=== PATIENT | male | born 1965 | race Caucasian/White ===

== ENCOUNTER 2016-11-23 04:30 | Inpatient (IN) ==
--- OUTSIDE RECORDS SUMMARY | 2016-11-23 04:45 | External Medical Summary | Referral Summary ---
:1965 Author Organization [facility] [place], [facility] Address [address] [place] [address] [place] [id number] Care Team Providers Name Role Phone No PCP, States Primary Care Physician Encounter [facility] [id number] Date(s): 03/30/16 - 03/30/16 [facility] [place], [address] [place] [phone] [phone] Discharge Diagnosis: Lumbar strain Discharge Disposition: 01-Home or Self Care Attending Physician: Kwabena Martin PA-C Admitting Physician: Kwabena Martin PA-C Vital Signs Most recent to oldest [Reference Range]: 1 Temperature Tympanic [36.6-38.1 degC] 36.7 degC (03/30/16 6:13 PM) Peripheral Pulse Rate [60-100 bpm] 77 bpm (03/30/16 6:13 PM) Blood Pressure [90-140/60-90 mmHg] 128/78mmHg (03/30/16 6:13 PM) SpO2 97 % (03/30/16 6:13 PM) Problem List Condition Effective Dates Status Health Status Informant Obesity(Confirmed) Active patient Allergies, Adverse Reactions, Alerts No Known Medication Allergies Medications cyclobenzaprine 10 mg oral tablet 10 mg 1 tabs, Oral, TID, as needed for spasm, X 10 days, # 30 tabs, 0 Refill(s) , Pharmacy: [id number], 1 tabs Oral TID,x10 days,PRN:as needed for spasm Start Date: 03/30/16 Stop Date: 04/09/16 Status: Orderedlidocaine 5% topical film 1 patches, Topical, Daily, # 30 patches, 0 Refill(s), Pharmacy: [id number] Start Date: 03/30/16 Status: OrderedNaprosyn 500 mg oral tablet 500 mg 1 tabs, Oral, BID, X 10 days, # 20 tabs, 0 Refill(s), Pharmacy: [id number], 1 tabs Oral BID,x10 days Start Date: 03/30/16 Stop Date: 04/09/16 Status: Ordered Results No data available for this section Immunizations No data available for this section Procedures No data available for this section Social History Social History Type Response Smoking Status Former smoker Assessment and Plan No data available for this section
--- OUTSIDE RECORDS SUMMARY | 2016-11-23 04:45 | External Medical Summary | Continuity of Care Document ---
:1965 Author Organization [facility] Allergies Active Description Code Type Severity Reaction Onset Reported/ Identified Relationship Clinical to Patient Status Yes No Known NKMA N/A N/A 05/02/2014 Medication Allergies Medications Problems Procedures Results Encounters ACCT No. Visit Discharge Status Pt. Type Provider Facility Loc./Unit Complaint Date/Time [id number] 03/30/2016 03/30/2016 DIS Outpatient Veronica, [facility] IC LOWER BACK 14 17:54:00 23:59:00 [facility] [id number] 05/02/2014 05/02/2014 DIS Outpatient Jacklyn, Via [facility] IC WKC 68 16:42:00 23:59:00 [facility] PAIN
[2016-11-23] MEDS ORDERED: NS 1,000 ML IV ONE (04:51)
[2016-11-23] MEDS ORDERED: HYDROMORPHONE 2 MG/ML INJECTION IVP ONE (04:51)
[2016-11-23] MEDS ORDERED: PROCHLORPERAZINE 10 MG/2 ML INJECTION IVP ONE (04:51)
[2016-11-23] MEDS ORDERED: KETOROLAC 30 MG/ML INJECTION IVP ONE (04:51)
--- NOTE | 2016-11-23 04:58 | Emergency Department Report ---
Abdominal Pain HPI - General Stated Complaint: severe abd pain,vomiting Time Seen by Provider: 11/23/16 04:36 Source: patient Mode of arrival: ambulatory Limitations: no limitations - History of Present Illness HPI narrative: Patient expresses concern over 2-3 days of right sided abdominal pain, crampy, waxing and waning, and sometimes associated with diarrhea. Patient has had nausea without vomiting, fevers or chills, and no prior episodes. MD complaint: abdominal pain Onset (ago): day(s) Consistency: intermittent Location: periumbilical, RUQ, RLQ - Related Data Home Medications Medication Instructions Recorded Confirmed Acetaminophen [Tylenol] 1 - 2 tab PO Q6H PRN 11/23/16 11/23/16 multivitamin,[id number] 1 tab PO QAM 12/24/16 tablet omega-3 fatty acids 1,000 mg 1,000 mg PO DAILY cap 12/24/16 capsule Previous Rx's Medication Instructions Recorded Ibuprofen [Motrin] 400 - 800 mg PO Q6H PRN 11/27/16 Allergies Allergy/AdvReac Type Severity Reaction Status Date / Time No Known Drug Allergies Allergy Verified 11/23/16 13:47 No Known Adverse Drug AdvReac Verified 11/23/16 13:47 Reactions Review of Systems All systems: reviewed and negative except as stated Gastrointestinal: Reports: as per HPI, abdominal pain, nausea, diarrhea PFSH PUD Surgical History: NONE Physical Exam - Limitations Limitations: no limitations - General General appearance: alert - Normal Exams: Head:: Normocephalic without trauma Eyes:: Pupils are PERRLA w/ EOMI, No scleral icterus, irritation, or foreign bodies noted ENMT:: No facial trauma, nasal exudates, pharyngeal erythema, or exudates are noted Neck:: Full range of motion, without adenopathy, JVD, bruits or thyromegaly Chest/Respirations:: Clear all bajwa, with good airflow, and symmetry bilaterally Cardiovascular:: Regular rate and rhythm, without murmur or gallop, Pulses 2+ all extremities, capillary refill, <2 seconds all extremities Genitourinary:: Penis without lesions, testicles normal size, and orientation, without tenderness Lymphatic:: No lymphadenopathy, or lymphedema noted Musculoskeletal:: No tenderness, or deformity noted, good range of motion, all extremities Integumentary:: No rashes, hives, or bruising noted, hair and nails, without abnormality Neurological:: Patient is alert, and oriented, cranial nerves, motor/sensory/ cerebellar, exams w/o gross deficits, to observation Psychiatric:: Patient exhibits, appropriate attention, emotion and affect - Abdominal Exam Abdominal exam: Present: soft, tenderness (moderate right-sided tenderness both upper and lower), diminished bowel sounds. Absent: guarding, rebound Course Vital Signs Temperature 99.9 F 11/23/16 04:35 Pulse Rate 88 11/23/16 04:35 Respiratory Rate 24 11/23/16 04:35 Blood Pressure 135/62 11/23/16 04:35 Pulse Oximetry 96 11/23/16 04:35 Temperature 99.9 F 11/23/16 04:35 Pulse Rate 88 11/23/16 04:35 Respiratory Rate 24 11/23/16 04:35 Blood Pressure 135/62 11/23/16 04:35 Pulse Oximetry 96 11/23/16 04:35 Abdominal Pain - MDM Narrative Medical decision making narrative: Patient given 1 L normal saline IV fluid bolus, Compazine 10 mg, Toradol 30 mg, Dilaudid 0.5 mg IV - Patient feeling much better Case disposed to Dr. Ruby at 6 AM pending: UA - CT A/P - CBC - CMP/L - - Lab Data Result diagrams: 11/27/16 03:59 11/23/16 04:50 Disposition Clinical Impression: Acute appendicitis Disposition: 02 To [facility] Condition: Stable - Seen By: physician
[2016-11-23] MEDS ORDERED: NS 100 ML ONE (06:04)
[2016-11-23] MEDS ORDERED: IOHEXOL 300mg/ml 100ml INJECTION ONE (06:04)
[2016-11-23] MEDS ORDERED: SALINE FLUSH 10ml SYRINGE ONE (06:05)
[2016-11-23] MEDS ORDERED: NS 1,000 ML IV SCH (07:15)
[2016-11-23 07:57] VITALS: BMI 33.6
[2016-11-23] MEDS ORDERED: ONDANSETRON 4 MG/2 ML INJECTION IVP PRN (08:09)
[2016-11-23] MEDS ORDERED: ERTAPENEM 1 G in NS 100 ML IV ONE (08:10)
--- NOTE | 2016-11-23 08:11 | CT Scan Report ---
Indication: RIGHT ABD PAIN PROCEDURE: CT abdomen pelvis w con: Encounter: Initial Comparison: None Technique: Axial CT images were performed through the abdomen and pelvis after the administration of intravenous contrast. Coronal and sagittal two-dimensional reformats. Automated Exposure Control and Iterative Reconstruction dose reducing techniques were utilized. Contrast: Omnipaque 300 100 mL Findings: Atelectasis in the lower lobes. The liver shows no enhancing masses or bile duct dilatation. The gallbladder is unremarkable. The spleen, pancreas and adrenal glands are within normal limits. Kidneys are normal. No abdominal or pelvic adenopathy. Bladder is normal. Prostate and rectum are unremarkable. No free air. There is significant inflammatory change and fat stranding surrounding an dilated appendix containing multiple appendicoliths. This measures up to 1.2 cm in diameter. There is trace free fluid around the liver, in the right paracolic gutter and pelvis. Bone windows are unremarkable for age. Impression: Acute appendicitis. Trace free fluid could represent a microperforation. Emergent surgical consultation is recommended. There is a preliminary report by [facility]. .
--- NOTE | 2016-11-23 10:38 | History and Physical ---
HISTORY OF PRESENT ILLNESS This patient is 51 years old. This patient developed right lower quadrant abdominal pain two days ago. He has had the right lower quadrant abdominal pain for the last two days. The pain has become much more severe during the last 12 hours. The patient vomited once yesterday afternoon. The patient had diarrhea once yesterday. The patient did come to [facility] for evaluation of this abdominal pain early on the morning of . The patient did undergo a CT scan at [facility] which shows acute appendicitis with possible microperforation. PAST MEDICAL HISTORY Previous Operations: None. Other Previous Hospitalizations: 1. Hospitalized in 2011 at [facility] at [place], [place] for evaluation of abdominal pain. The patient had a CT scan. The patient states that he was thought at the time of this hospitalization to have ulcer disease as a cause for his abdominal pain.. SOCIAL HISTORY The patient lives in [place], [place] in [facility]. The patient does not smoke cigarettes. The patient is .. CURRENT MEDICATIONS 1. Multivitamin one p.o. daily. 2. Hollister-3 Fish Oil. ALLERGY HISTORY The patient has no known allergies to medications. PHYSICAL EXAMINATION VITAL SIGNS: Temperature is 99.9 degrees oral. Pulse is 95. Respiratory rate is 24. Blood pressure is 139/79. Oxygen saturation is 95% on room air. Height is 1.65 meters. Weight is 88.9 kg. BMI is 32.6 kg/m2. HEAD, EYES, EARS, NOSE AND THROAT: No abnormalities noted. NECK: No neck masses. CHEST: Lung sounds are clear. HEART: Regular rhythm. No murmurs. ABDOMEN: The patient has well-localized severe right lower quadrant abdominal tenderness. No abdominal masses. RECTUM: Exam deferred. EXTREMITIES: No abnormalities noted. LABORATORY DATA White blood cell count is 16,900 with 3% bands and 80% neutrophils. Hemoglobin is 14. Hematocrit is 43.2. Liver function tests are all normal. Serum lipase is 100. IMAGING DATA This patient did undergo a CT scan of the abdomen and pelvis with IV contrast at [facility] on 11/23/2016. This does show acute appendicitis. There is an appendicolith at the base of the appendix. The appendix is distended. Overall findings suggest acute appendicitis with possible microperforation. There is a mild amount of right abdominal free fluid suggesting microperforation. IMPRESSION 1. Acute appendicitis with possible microperforation. PATIENT EDUCATION I did talk with the patient and his about treatment of the acute appendicitis. I did describe to them [id number] the nature of a laparoscopic appendectomy operation. Expected benefits of operation were reviewed. Alternatives were reviewed. Potential risks and complications were also reviewed including anesthetic risk, bleeding, infection, poor wound healing and injury to intraabdominal structures such as loops of intestine. I did tell the patient and his that there is a chance that any laparoscopic appendectomy operation might need to be converted over to an open laparotomy with appendectomy operation. Recovery from the operation was discussed. Questions were solicited from the patient and his . All their questions were answered. The patient does wish to proceed. PLAN Admit patient to [facility] to undergo laparoscopic appendectomy with possible conversion to open laparotomy with appendectomy. MIGUE
[2016-11-23] MEDS: MORPHINE SULFATE 10 MG SYRINGE IV PRN (10:56)
[2016-11-23] MEDS: LR 1,000 ML IV SCH ×2 (11:53→13:35)
[2016-11-23] MEDS ORDERED: BUPIVACAINE 0.25% (2.5mg/ml) PF 30ml INJECTION ID ONE (11:57)
--- NOTE | 2016-11-23 12:06 | Anesthesia Preoperative Report ---
Anesthesia Preoperative Record - Date and Time Date: 11/23/16 Preoperative Diagnosis: acute abd. Proposed Procedure: lap. appy NPO Since Date: 11/23/16 NPO Since Time: 01:00 Allergies/Adverse Reactions: Allergies Allergy/AdvReac Type Severity Reaction Status Date / Time No Known Allergies Allergy Verified 11/23/16 05:11 - Vital Signs Vital Signs: Temp Pulse Resp BP Pulse Ox 101.6 F H 106 H 14 109/60 92 11/23/16 11:34 11/23/16 11:34 11/23/16 11:34 11/23/16 11:34 11/23/16 11:38 Height and Weight: Height 1.65 m Weight 91.7 kg Body Mass Index 33.6 - Medications Inpatient Medications: Current Medications Bupivacaine HCl (Marcaine 0.25% Pf) 30 ml ID O ONE Stop: 11/23/16 11:58 Sodium Chloride (Normal Saline) 1,000 mls @ 125 mls/hr IV .Q8H IGOR Last Infusion: 11/23/16 11:24 Dose: 0 mls/hr Lactated Ringer's (Lactated Ringers) 1,000 mls @ 50 mls/hr IV .Q20H IGOR Last Admin: 11/23/16 11:53 Dose: 50 mls/hr Morphine Sulfate (Morphine Sulfate Inj) 2 - 5 mg IV Q1H PRN PRN Reason: Pain Last Admin: 11/23/16 10:56 Dose: 2 mg Ondansetron HCl (Zofran) 4 - 8 mg IVP Q6H PRN PRN Reason: Nausea &/or vomiting Home Medications: Home Medications Medication Instructions Recorded Confirmed Type Acetaminophen [Tylenol] 1 - 2 tab PO Q6H PRN 11/23/16 11/23/16 History Is Patient on Beta Edilia?: No Beta Edilia: No - Social History Smoking Status: Former smoker Hx Chewing Tobacco Use: No Second Hand Exposure: No Substance Use Type: does not use Alcohol Intake: current Alcohol Intake Frequency: a few times a month - Pertinent Findings EKG Rhythm: Normal Sinus Rhythm - Physical Exam Respiratory Exam: Present: lungs clear, bilateral breath sounds equal Cardiovascular Exam: Present: regular rate and rhythm, no murmur - Airway Assessment Mallampati Score: II TMD: 3 Fingerbreadths Neck Extension: good Overall Assessment: no airway concerns - ASA ASA Score: 2 - Plan Anesthesia: General Inhalation Gases - Discussion Discussion: Discussed risks/options/alternatives of anesthesia and questions answered. Patient consents. Nursing pain assessment noted. Present for Discussion: spouse Attestation Statement: Prior to the delivery of any anesthetic medication, I examined the patient, developed the plan, obtained the patient's consent and discussed the risk and benefits of the procedure with the patient/guardian. - Additional Information Seen by Anesthesia: Yes
[2016-11-23] MEDS ORDERED: PROPOFOL 20 ML ONE (12:18)
[2016-11-23] MEDS ORDERED: ROCURONIUM 50 MG/5 ML INJECTION IVP ONE (12:18)
[2016-11-23] MEDS ORDERED: LIDOCAINE 2% (100mg/5mL) PF 5ml vl ONE (12:18)
[2016-11-23] MEDS ORDERED: FentaNYL 100 MCG/2 ML INJECTION ONE ×2 (12:20→13:09)
[2016-11-23] MEDS ORDERED: ONDANSETRON 4 MG/2 ML INJECTION ONE (12:26)
[2016-11-23] MEDS ORDERED: GLYCOPYRROLATE 0.4 MG/2 ML INJECTION ONE (12:26)
[2016-11-23] MEDS ORDERED: LACRI-LUBE EYE OINT 3.5gm ONE (12:47)
[2016-11-23] MEDS ORDERED: SUGAMMADEX 200mg/2ml INJECTION IVP ONE (13:45)
--- NOTE | 2016-11-23 14:08 | General Surgery Procedure Note ---
Date of Procedure: 11/23/16 Surgeon: Lidia Postoperative Diagnosis: Acute appendicitis Procedure: Laparoscopic appendectomy Estimated Blood Loss: See Anesthesia Record.
[2016-11-23] MEDS ORDERED: KETOROLAC 30 MG/ML INJECTION IVP PRN (14:49)
[2016-11-23] MEDS ORDERED: DESFLURANE 240ml LIQUID IH ONE (14:50)
[2016-11-23] MEDS: D5-1/2NS with KCL 20mEq 1,000 ML IV SCH (15:00)
[2016-11-23] MEDS: PIPERACILLIN/TAZOBACTAM 3.375 GM in NS 100 ML IV SCH ×2 (15:10→21:11)
--- NOTE | 2016-11-23 17:40 | Anesthesia Postoperative Note ---
- Date and Time Date: 11/23/16 Time: 17:40 - Status Patient Participated in Evaluation: Patient Participated in Person Vital Signs: Temp Pulse Resp BP Pulse Ox 99.3 F 97 16 113/58 99 11/23/16 17:32 11/23/16 17:32 11/23/16 17:32 11/23/16 17:17 11/23/16 17:32 Respiratory Function: Airway Patent Cardiovascular Function: Regular Pulse EKG Rhythm: Normal Sinus Rhythm Mental Status: Lethargic Unable to Assess Pain Due to: Patient Sleeping (Family at bedside) Hydration: Taking PO Fluids Complications During Recover: None Apparent - Follow-Up Instructions Instructions: Per Surgeon
[2016-11-23] MEDS ORDERED: ACETAMINOPHEN 500 MG TABLET PO ONE (21:09)
[2016-11-24] MEDS: D5-1/2NS with KCL 20mEq 1,000 ML IV SCH ×2 (02:26→14:53)
[2016-11-24] MEDS: PIPERACILLIN/TAZOBACTAM 3.375 GM in NS 100 ML IV SCH ×4 (02:35→20:43)
[2016-11-24] MEDS: MORPHINE SULFATE 10 MG SYRINGE IV PRN ×3 (08:40→22:49)
--- NOTE | 2016-11-24 10:14 | Operative Note ---
DATE OF OPERATION 11/23/2016 PREOPERATIVE DIAGNOSIS Acute appendicitis with possible microperforation. POSTOPERATIVE DIAGNOSIS Acute appendicitis with perforation and generalized peritonitis. OPERATION Laparoscopic appendectomy. SURGEON Raghav Murillo MD ANESTHESIA General. ASA CLASS 2 FINDINGS This patient did have acute appendicitis with perforation. The appendix was acutely inflamed and necrotic. There was a perforation site at the appendix. The appendix was extending inferiorly off the cecum and going down into the pelvis. There was purulent fluid in the pelvis. There was purulent fluid in the right lateral gutter. There was pus at the right subdiaphragmatic space. There was inflammatory exudate throughout the right side of the abdomen. The patient did have generalized peritonitis. The anterior abdominal wall parietal peritoneum was inflamed. There was also some purulent fluid at the left side of the abdomen. There was no periappendiceal abscess. There was purulent fluid throughout the peritoneal cavity with acute peritonitis. The terminal ileum appeared normal. The cecum appeared normal. Liver appeared normal. Loops of intestine which were visualized appeared normal. DESCRIPTION OF OPERATION The patient was placed in the supine position on the operating table. General anesthesia was satisfactorily induced. A Montoya catheter was inserted into the urinary bladder. The abdomen was prepped and draped in the routine sterile fashion. The skin and underlying structures at the abdominal wall at an infraumbilical incision site were infiltrated with bupivacaine 0.25% without epinephrine. An infraumbilical incision was made. A Veress needle was inserted into the peritoneal cavity through the incision. Pneumoperitoneum was established with carbon dioxide. The Veress needle was removed. A 5-mm port was placed at the infraumbilical incision. The 5- mm laparoscope was inserted through the 5-mm infraumbilical port. The skin and underlying abdominal wall structures were infiltrated with bupivacaine at the lateral margin of the right rectus abdominis muscle at the right upper quadrant of the abdomen at another incision site. An incision was made at this location, and a 5-mm port was placed at the right upper quadrant abdominal incision. The skin and underlying abdominal wall structures were infiltrated with bupivacaine at a suprapubic incision site. A suprapubic incision was made at the midline. A 12-mm port was placed at the suprapubic incision. The peritoneal cavity was examined with the laparoscope with findings as described above. The appendix was grasped and elevated with the endoscopic Daniella forceps inserted at the suprapubic port. The mesoappendix was divided with the Ethicon brand 5-mm laparoscopic ultrasonically activated coagulating gareth. This was the Harmonic Suman ultrasonic gareth. This was introduced at the right upper quadrant port. The mesoappendix was coagulated and divided with the Ethicon brand 5-mm laparoscopic ultrasonically activated coagulating gareth. The appendix was completely freed up in this manner. Two separate 0 PDS Endoloop ligatures were applied to the base of the appendix adjacent to the cecum. The appendix was then divided just beyond these ligatures with the curved dissecting scissors. The appendix was placed in a specimen retrieval pouch. The specimen retrieval pouch containing the appendix was brought out through the suprapubic incision. The appendix was submitted as a specimen for study by the pathologist. The 12- mm port was reinserted at the suprapubic incision. The appendectomy site was examined. The appendiceal stump looked good. Irrigation was then performed throughout the peritoneal cavity. Irrigation was performed at the pelvis. Irrigation was performed at the right lateral gutter. Irrigation was performed at the right subdiaphragmatic space and the subhepatic space. Irrigation was performed at the left subdiaphragmatic space. Irrigation was performed at the left lateral gutter. More irrigation was then performed at the pelvis. More irrigation was then performed to the right lateral gutter and the right subdiaphragmatic space. Irrigation was performed until all the irrigation fluid had a clear return everywhere throughout the peritoneal cavity. The appendiceal stump was examined. The appendiceal stump looked good. The appendectomy site looked good. There was good hemostasis at the appendectomy site. The suprapubic port was removed. The right upper quadrant port was removed. The laparoscope was removed. The infraumbilical port was removed. Carbon dioxide was removed from the peritoneal cavity by desufflation. The fascial layer of the suprapubic incision was closed with a series of simple interrupted stitches using 0 Vicryl suture. Skin margins were then closed at all the incisions with subcuticular stitches using 4-0 Vicryl suture. Benzoin and 1/4-inch wide Steri-Strips were applied to the incisions. Sterile dressings were applied. The patient tolerated the operation well. The patient was transferred from the operating room to the recovery room in satisfactory condition. MIGUE
[2016-11-24] MEDS ORDERED: SALINE FLUSH 10ml SYRINGE IV PRN (14:26)
[2016-11-25] MEDS: D5-1/2NS with KCL 20mEq 1,000 ML IV SCH ×7 (00:23→22:03)
[2016-11-25] MEDS: PIPERACILLIN/TAZOBACTAM 3.375 GM in NS 100 ML IV SCH ×5 (02:36→21:02)
[2016-11-25] MEDS ORDERED: Oxycodone *IR* 5 MG TABLET PO PRN (14:03)
[2016-11-25] MEDS ORDERED: IBUPROFEN 200 MG TABLET PO PRN (14:03)
[2016-11-25] MEDS: ACETAMINOPHEN 500 MG TABLET PO PRN ×2 (14:41→23:28)
[2016-11-26] MEDS: PIPERACILLIN/TAZOBACTAM 3.375 GM in NS 100 ML IV SCH ×4 (03:06→22:05)
--- NOTE | 2016-11-26 07:30 | Progress Note ---
DATE 11/24/2016 POSTOP DAY #1 HISTORY The patient is having less abdominal pain today than he did before his operation yesterday. He has been up ambulating twice today. EXAM VITAL SIGNS: The patient did have a temperature up to 101.7 degrees Fahrenheit at 2252 hours on 11/23/2016. The patient does continue to have temperature elevation today. Temperature was 100.4 degrees oral at 0004 hours today. Most recent temperature was 100.1 degrees oral at 1033 hours today. Pulse is 89. Respiratory rate is 16. Blood pressure is 117/63. Oxygen saturation is 93% on oxygen at 1 liter per minute by nasal cannula. ABDOMEN: Dressings and Band-Aids are left in place at the abdominal incisions. The abdomen is soft and nondistended. LABORATORY DATA White blood cell count was 15,100 with 16 bands this morning. Hemoglobin is 12.2. Hematocrit is 37.9. Plasma lactate was 1.5 at admission. Plasma lactate is 1.3 this morning. Serum procalcitonin was 8.18 preoperatively yesterday. Serum procalcitonin is 22.16 today. IMPRESSION 1. Doing well following laparoscopic appendectomy for treatment of acute appendicitis with perforation and generalized peritonitis on 11/23/2016. PLAN 1. Continue intravenous Zosyn. The patient is receiving receive intravenous Zosyn every 6 hours. 2. Continue n.p.o. except for ice chips for now. 3. Continue to ambulate patient. 4. Continue sequential compression devices for deep venous thrombosis prophylaxis. 5. Continue to monitor white blood cell count with differential and procalcitonin. 6. Continue to monitor temperature. [facility]
[2016-11-26] MEDS: D5-1/2NS with KCL 20mEq 1,000 ML IV SCH (09:39)
--- NOTE | 2016-11-26 10:58 | Progress Note ---
DATE POSTOP DAY #2 HISTORY The patient has been up ambulating in the halls twice today. The patient is having loose bowel movements. PHYSICAL EXAMINATION VITAL SIGNS: Temperature is 98.7 degrees oral. Pulse is 98. Respiratory rate is 16. Blood pressure is 118/68. Oxygen saturation is 92% on room air. ABDOMEN: All of the abdominal incisions look good. No sign of any wound healing problems. LABORATORY DATA White blood cell count is 15,600 with 1 band today. Hemoglobin is 11.6. Hematocrit is 35.8. Procalcitonin is 12.24 today. IMPRESSION 1. Doing well following laparoscopic appendectomy for treatment of acute appendicitis with perforation and generalized peritonitis. 2. Sepsis which is improving. PLAN 1. Start clear liquid diet with toast and crackers today. 2. Decrease rate of administration of intravenous fluids. 3. Continue ambulation. 4. Continue intravenous Zosyn every 6 hours. 5. Continue sequential compression devices for deep venous thrombosis prophylaxis. 6. Discontinue Toradol and start oxycodone, acetaminophen and ibuprofen to begin transition from intravenous analgesics to oral analgesics. 7. Continue to monitor temperature, white blood cell count and procalcitonin. MTDD
--- NOTE | 2016-11-26 17:47 | Progress Note ---
DATE 11/26/2016 POSTOP DAY #3 HISTORY The patient is ambulating in the room. He is tolerating a clear liquid diet. Pain control is good. The patient is passing flatus and having loose bowel movements. PHYSICAL EXAMINATION VITAL SIGNS: The patient did have a temperature of 101.4 degrees oral at 2300 hours on 11/25/2016. The patient has been afebrile so far today. Most recent temperature was 97.7 degrees oral. Pulse is 80. Respiratory rate is 16. Blood pressure is 119/76. Oxygen saturation is 93% on room air. ABDOMEN: All the abdominal incisions look good. LABORATORY DATA White blood cell count is 10,600 with no bands this morning. Hemoglobin is 11.3. Hematocrit is 35.1. Procalcitonin is 7.77 today. IMPRESSION 1. Doing well following laparoscopic appendectomy for treatment of acute appendicitis with perforation and generalized peritonitis. 2. Sepsis which is improving. PLAN 1. Advance diet as tolerated to regular diet. 2. Continue ambulation. 3. Continue intravenous Zosyn every six hours. 4. Decrease rate of administration of intravenous fluids further. 5. Continue sequential compression devices for deep venous thrombosis prophylaxis. 6. Continue to monitor temperature, white blood cell count and procalcitonin. MTDD
[2016-11-27] MEDS: D5-1/2NS with KCL 20mEq 1,000 ML IV SCH ×4 (03:25→14:30)
[2016-11-27] MEDS: PIPERACILLIN/TAZOBACTAM 3.375 GM in NS 100 ML IV SCH ×3 (03:28→15:14)
[2016-11-27 12:40] VITALS: PULSE 81
[2016-11-27 15:48] VITALS: BP 138/79; RESP 17; TEMP 97.7; O2SAT 96
--- NOTE | 2016-11-27 17:32 | Discharge Instructions ---
Discharge Plan - Med Rec/Dispo Referrals/Follow Up: Raghav Murillo MD [Physician] - (Nina will call patient from office to schedule hospital followup appointment.) Cas Instructions: Laparoscopic Appendectomy (DC) Prescriptions: New Ibuprofen [Motrin] 400 - 800 mg PO Q6H PRN PRN Reason: Pain Continue Acetaminophen [Tylenol] 1 - 2 tab PO Q6H PRN PRN Reason: Pain - Disposition 01 Discharged Home, Self-Care
--- NOTE | 2016-11-27 18:34 | Progress Note ---
DATE 11/27/2016 POSTOP DAY #4 HISTORY The patient is tolerating a regular diet. He is passing flatus and having loose bowel movements. His abdominal pain is minimal. PHYSICAL EXAMINATION Vital signs: Temperature is 97.7 degrees oral. Pulse is 81. Respiratory rate is 17. Blood pressure is 138/79. Oxygen saturation is 96% on room air. ABDOMEN: All the abdominal incisions look good. LABORATORY DATA White blood cell count is 8000 with no bands. Hemoglobin is 11.6. Hematocrit is 35.7. IMPRESSION Doing well following laparoscopic appendectomy for treatment of acute appendicitis with perforation and generalized peritonitis. PLAN Dismiss patient from [facility] today. DISCHARGE MEDICATIONS 1. Resume medications which the patient was taking prior to admission to the hospital. 2. Cipro 500 mg one p.o. b.i.d. (dispense 10 - no refills). 3. Flagyl 500 mg one p.o. t.i.d. (dispense 15 - no refills). 4. Tylenol 325 mg one to two tablets p.o. every five hours p.r.n. pain. 5. Ibuprofen 200 mg two to four tablets p.o. every six hours p.r.n. pain. DISCHARGE DISPOSITION Followup office visit with Dr. Murillo on 12/03/2016. MIGUE
--- NOTE | 2016-12-02 13:18 | Discharge Summary ---
DISCHARGE DIAGNOSES 1. Acute appendicitis with perforation. 2. Acute generalized peritonitis. 3. Sepsis. OPERATION Laparoscopic appendectomy on 11/23/2016. HOSPITAL COURSE This patient was admitted to [facility] by Dr. Murillo on 11/23/2016. Details of history and physical examination findings at the time of admission to the hospital can be found in the dictated admission history and physical examination report in the chart. At the time of admission to the hospital, white blood cell count was 16,900 with 3 bands. Plasma lactate was 1.5. Serum procalcitonin was 8.18. A CT scan of the abdomen and pelvis performed at [facility] Emergency Room prior to admission showed acute appendicitis. The overall findings suggested acute appendicitis with possible microperforation. There was a mild amount of right abdominal free fluid suggesting micro perforation demonstrated on the CT scan. The patient underwent laparoscopic appendectomy by Dr. Murillo on 11/23/2016. The patient was given intravenous Invanz preoperatively. Details of operative findings can be found in the dictated operative report in the chart. The patient did appear to have acute appendicitis with perforation and acute generalized peritonitis at the time of operation. The patient did tolerate the operation well. The patient was started on treatment with intravenous Zosyn every six hours postoperatively. The patient did have a temperature elevation up to 101.7 degrees at 2252 hours on 11/23/2016. On the first postoperative day, the patient reported he was having less abdominal pain than he had preoperatively. He was ambulating. Temperature was 100.4 degrees oral at 0004 hours. Temperature was 100.1 degrees oral at 1033 hours. White blood cell count was 15,100 with 16 bands on the first postoperative day. Plasma lactate was 1.3. Serum procalcitonin was 22.16. The patient did appear to be doing well overall. Intravenous Zosyn was continued every six hours. The patient was kept n.p.o. yet at this time. Ambulation of the patient was encouraged. The patient was using sequential compression devices for deep venous thrombosis prophylaxis. On the second postoperative day, the patient was up ambulating in the halls. He was having loose bowel movements. Temperature was 98.7 degrees oral in the morning. The patient did have a temperature elevation up to 101.4 degrees at 2300 hours on the second postoperative day. White blood cell count was 15,600 with 1 band. Procalcitonin was 12.24. Clear liquid diet with toast and crackers was started on the second postoperative day. Rate of administration of intravenous fluids was decreased. Ambulation was continued. Intravenous Zosyn was continued every six hours. Sequential compression devices were continued for deep venous thrombosis prophylaxis. Toradol was discontinued at this time. Oral analgesics were started to begin transition from intravenous analgesics to oral analgesics. On the third postoperative day, the patient was tolerating a clear liquid diet. The patient was passing flatus and having loose bowel movements. The patient was afebrile at this time. White blood cell count was 10,600 with no bands. Procalcitonin was 7.77. The sepsis appeared to be improving. The patient was doing well overall. Diet was advanced to a regular diet. Ambulation was continued. Intravenous Zosyn was continued every six hours. Rate of administration of intravenous fluids was decreased further. Sequential compression devices were continued for deep venous thrombosis prophylaxis. On the fourth postoperative day, the patient was tolerating a regular diet. He was passing flatus and having loose bowel movements. His abdominal pain was minimal. All the abdominal incisions looked good. White blood cell count was 8000 with no bands. The patient was dismissed from [facility] in stable condition on the fourth postoperative day. A pathology report was returned on the appendix specimen submitted at the time of operation. The pathology report diagnosis on the appendix was acute suppurative appendicitis. The inflammatory process did appear to extend into the mesoappendix with some focal abscess formation. DISCHARGE MEDICATIONS 1. Multivitamin one p.o. daily. 2. [place]-3 fish oil. 3. Cipro 500 mg one p.o. b.i.d. (dispense 10 - no refills). 4. Flagyl 500 mg one p.o. t.i.d. (dispense 15 - no refills). 5. Tylenol 325 mg one to two tablets p.o. every five hours p.r.n. pain. 6. Ibuprofen 200 mg two to four tablets p.o. every six hours p.r.n. pain. DISCHARGE DISPOSITION Followup office visit with Dr. Murillo on 12/03/2016. MIGUE
== END 2016-11-27 19:35 | disposition home or self-care (01) | DRG 853 ==
LOC: ED 04:30 → SRG 04:30
PROVIDERS: ADMIT Surgery; ATTEND Surgery